=== PATIENT | female | born 1975 | race Caucasian/White ===

== ENCOUNTER 2016-10-07 18:00 | Emergency (ER) | payer OTHER ==
--- NOTE | ~2016-10-07 | ER ---
PATIENT'S NAME: MATT MADRID [facility] AGE: 41 Y [address] ROOM: [place] [address] LOCATION: [facility] ADMIT DATE: 10/07/2016 ER/Outpatient Report DISCHARGE DATE: 10/07/2016 FAMILY PHYSICIAN: Edgar Ruth PA-C ATTENDING PHYSICIAN: Filiberto Gaxiola Time of Arrival: 1800 hours. Time of Exam: 1800 hours. CHIEF COMPLAINT: Headache. HISTORY OF PRESENT ILLNESS: The patient was transferred here from [facility], states that she has a headache that started last night. She has taken home medications for the headache without any relief. She states it is the worst headache she has ever had. She is nauseated, has vomited twice today, and has extreme photophobia. She went to the ER because it was the worst headache she had ever had. [facility] did do some lab work. CBC was within normal limits. Her Chem panel was within normal limits. C-reactive protein was 0.2. CT of her head was completed, no acute abnormality was seen. They gave her Zofran IM, Nubain IM, Demerol IV, fluids, and Zofran 4 mg IV without any relief of her headache; sent her here for further evaluation and treatment. Upon arrival to the ER, she states the pain is primarily behind the left eye. She has a mask covering her eyes to help with the photophobia. ALLERGIES: ON HER CHART AND REVIEWED BY ME. MEDICATIONS: On her chart and reviewed by me. PAST MEDICAL HISTORY: Migraines. PAST SURGERIES: Tonsillectomy, sinusitis, knee arthroscopy. She donated a kidney back in 2005. SOCIAL HISTORY: She denies use of tobacco and drugs. Drinks alcohol on an occasional basis. Did have a couple drinks last night. REVIEW OF SYSTEMS: All negative other than those mentioned in the HPI. The patient arrived per PATIENT'S NAME: MATT MADRID [facility] AGE: 41 Y [address] ROOM: [place] [address] LOCATION: [facility] ADMIT DATE: 10/07/2016 ER/Outpatient Report DISCHARGE DATE: 10/07/2016 FAMILY PHYSICIAN: Edgar Ruth PA-C ATTENDING PHYSICIAN: Filiberto Gaxiola EMS with IV of normal saline in place infusing at a wide-open rate. PHYSICAL EXAMINATION: VITAL SIGNS: Blood pressure is 116/65, pulse of 89, respirations 16, temperature of 98.8, O2 saturations 100% on room air. [place] Coma Scale is 15. She is awake, alert, and oriented x4. SKIN: [place], warm, and dry. RESPIRATIONS: Even and nonlabored. HEENT: TMs are dull. Nasal is boggy. Oropharynx is clear. NECK: Supple. No lymphadenopathy. She is able to move her neck in all boss of motion. No rigidity noted. LUNGS: Lung sounds are clear throughout. HEART: Regular rate and rhythm. ABDOMEN: Soft, nondistended. Bowel sounds are present. EXTREMITIES: She has strong hand grasps. EMERGENCY DEPARTMENT COURSE: Fluids were continued at a wide-open rate. She was given Benadryl 25 mg IV and then 15 minutes later, we gave her Compazine 10 mg IV. Her pain did come down from a 10/10 to a 6/10. We then gave her Toradol at 15 mg IV, started another liter of fluids on her and allowed her to rest. With the medicine and rest, the pain did come down to a 4/10. She was able to take the mask off, open her eyes, look at me. Pupils were equal and reactive. Extraocular movement is intact. Negative nystagmus. IMPRESSION: Headache. PLAN: Fluids, rest. Continue her current medications. If the headache returns to the magnitude that it was, she should follow up with her primary provider or return to the ER. She and her family verbalized understanding. HANNAH BRITO APRN FOR MD MIKEL PINEDA/[facility]ifred /[id number] d: 10/08/169 t: 10/16/161933, OUTPATIENT REPORT
== END 2016-10-07 19:58 | disposition disaster alternative care site (69) ==
LOC: GMED 18:00
DX: R51 Headache (principal); Z88.8 Allergy status to other drugs, medicaments and biological substances; Z88.1 Allergy status to other antibiotic agents; Z88.9 Allergy status to unspecified drugs, medicaments and biological substances; Z79.899 Other long term (current) drug therapy; Z90.89 Acquired absence of other organs; Z52.4 Kidney donor; Z98.890 Other specified postprocedural states
CPT/HCPCS: J0780; J1200; J1885; J7030